=== PATIENT | female | born 2000 | race Two or more races ===

== ENCOUNTER 2024-08-10 14:28 | Emergency (ER) | payer OTHER ==
[~2024-08-10] VITALS: Ht 157.5 cm; Wt 95.7 kg
[~2024-08-10 14:28] MED LIST: PROVENTIL2.5 MG/3 M IH; SINGULAIR4 MG PO
[2024-08-10] MEDS ORDERED: KETOROLAC TROMETHAMINE 60 MG VIAL IM ONE (18:00)
[2024-08-10] MEDS ORDERED: CEFTRIAXONE SODIUM 1,000 MG VIAL IM ONE (18:00)
[2024-08-10] MEDS ORDERED: KETO10TA2 PO (18:38)
[2024-08-10] MEDS ORDERED: AMOX-CLAV 875-1 EACH PO (18:38)
== END 2024-08-10 19:08 | disposition home or self-care (01) ==
LOC: ER 14:28
DX: J03.90 Acute tonsillitis, unspecified (principal); Z87.09 Personal history of other diseases of the respiratory system